=== PATIENT | male | born 1950 | race Caucasian/White ===

== ENCOUNTER 2021-07-17 14:01 | Emergency (ER) | payer OTHER ==
[~2021-07-17 14:01] MED LIST: LIPITOR 10MG TA10 MG PO; LOSARTAN POTASS50 MG PO; NORCO 5-325 TA1 EACH PO; QUETIAPINE FUM200 MG PO; VITAMIN C WIT1000 MG PO; ZOFRAN8 MG PO
== END 2021-07-17 17:36 | disposition home or self-care (01) ==
LOC: FER 14:01
DX: S01.01XA Laceration without foreign body of scalp, initial encounter (principal); S09.90XA Unspecified injury of head, initial encounter; I10 Essential (primary) hypertension; Z23 Encounter for immunization; W01.0XXA Fall on same level from slipping, tripping and stumbling without subsequent striking against object, initial encounter; Y92.000 Kitchen of unspecified non-institutional (private) residence as the place of occurrence of the external cause
CPT/HCPCS: 70450; 72125; 90471; 90715

== ENCOUNTER → 2021-09-14 | Day surgery (SDC) | payer MEDICARE ==
[~2021-09-14] VITALS: Ht 180.3 cm; Wt 82.8 kg
[2021-09-14 08:19] LABS: HCT 45.5 % (42.0-52.0); HGB 15.4 g/dl (13.2-18.0); MCH 30.7 pg (25.0-31.0); MCHC 33.8 g/dL (32.0-36.0); MCV 90.6 fL (78.0-100.0); MPV 9.7 fL (6.0-9.5); RBC 5.02 M/uL (4.70-6.00); RDW 12.9 % (11.5-14.0)
[2021-09-14 08:26] LABS: ALBUMIN 4.2 g/dL (3.4-5.0); BILIRUBIN - TOTAL 0.8 mg/dL (0.2-1.0); BUN/CREAT RATIO (CALC) 15.7 RATIO; CREATININE 0.89 mg/dL (0.67-1.17); POTASSIUM 3.9 mmol/L (3.5-5.1); TOTAL PROTEIN 7.2 g/dL (6.4-8.2)
== END | disposition home or self-care (01) ==
LOC: FAS 07:33
PROVIDERS: Surgery
DX: Z12.11 Encounter for screening for malignant neoplasm of colon (principal); D12.6 Benign neoplasm of colon, unspecified; E78.5 Hyperlipidemia, unspecified; I10 Essential (primary) hypertension; G47.30 Sleep apnea, unspecified; Z87.891 Personal history of nicotine dependence; Z86.010 Personal history of colon polyps
CPT/HCPCS: 36415; 80053; J1610; J2704; J7120